=== PATIENT | male | born 1955 | race Caucasian/White ===

== ENCOUNTER 2017-09-20 07:48 | Day surgery (SDC) | payer OTHER ==
[~2017-09-20 07:48] MED LIST: LIDOCAINE HCL 1% MPF SOL ONE; PROPOFOL 500 MG/50 ML EMU IV ONE
[2017-09-20 09:48] VITALS: TEMP 98.6
[2017-09-20 09:57] VITALS: RESP 20
[2017-09-20 10:02] VITALS: BP 110/73; PULSE 78; O2SAT 96
== END 2017-09-20 10:20 | disposition home or self-care (01) | DRG 951 ==
LOC: SURG 07:48
PROVIDERS: ATTEND Internal Medicine Gastroenterology
DX: Z12.11 Encounter for screening for malignant neoplasm of colon (principal); K51.90 Ulcerative colitis, unspecified, without complications; D17.79 Benign lipomatous neoplasm of other sites; Z86.010 Personal history of colon polyps; K57.30 Diverticulosis of large intestine without perforation or abscess without bleeding; K64.8 Other hemorrhoids
CPT/HCPCS: 99001; J2001; J2704

== ENCOUNTER 2018-08-18 09:39 | Outpatient (CLI) | payer OTHER ==
[2017-09-20 10:02] VITALS: O2SAT 96
== END 2018-08-18 09:40 | disposition home or self-care (01) | DRG 558 ==
LOC: CONVCARE 09:39
PROVIDERS: ATTEND Orthopaedic Surgery
DX: M75.102 Unspecified rotator cuff tear or rupture of left shoulder, not specified as traumatic (principal)
CPT/HCPCS: 73030

== ENCOUNTER 2018-11-28 07:22 | Day surgery (SDC) | payer OTHER ==
[2018-11-28] MEDS ORDERED: PROPOFOL 500 MG/50 ML EMU IV ONE (07:50)
[2018-11-28] MEDS ORDERED: LIDOCAINE HCL 1% MPF 30 SOL ONE (07:50)
[2018-11-28 09:42] VITALS: TEMP 97.6
[2018-11-28 09:54] VITALS: O2SAT 98
[2018-11-28 10:01] VITALS: BP 144/84; PULSE 75; RESP 18
== END 2018-11-28 10:30 | disposition home or self-care (01) | DRG 386 ==
LOC: SURG 07:22
PROVIDERS: ATTEND Internal Medicine Gastroenterology
DX: K51.90 Ulcerative colitis, unspecified, without complications (principal); K57.32 Diverticulitis of large intestine without perforation or abscess without bleeding; Q43.9 Congenital malformation of intestine, unspecified; E11.9 Type 2 diabetes mellitus without complications; Z86.010 Personal history of colon polyps; D17.79 Benign lipomatous neoplasm of other sites; K64.8 Other hemorrhoids; K62.1 Rectal polyp
CPT/HCPCS: 82962; 99001; J2001; J2704